=== PATIENT | female | born 1950 | race African-American/Black ===

== ENCOUNTER 2022-03-18 21:54 | Emergency (ER) | payer OTHER ==
[~2022-03-18] VITALS: Ht 160 cm; Wt 66.7 kg
[2022-03-18 22:14] VITALS: BP_SYST 133
[2022-03-18] MEDS ORDERED: IBUPROFEN 800 MG TABLET PO ONE (23:15)
[2022-03-18] MEDS ORDERED: ASPIRIN 325 MG TABLET PO ONE (23:15)
[2022-03-18] MEDS ORDERED: NITROGLYCERIN 0.4 MG TAB.SUBL SL ONE (23:15)
[2022-03-18] MEDS ORDERED: predniSONE 20 MG TABLET PO ONE (23:45)
[2022-03-18] MEDS ORDERED: IPRATROPIUM/ALBUTEROL SULFATE 3 ML AMPUL.NEB (DUONEB) INH ONE (23:45)
[2022-03-19 00:37] LABS: BASOPHILS % (AUTO) 0.4 % (0.0-2.0); EOSINOPHILS # (AUTO) 0.1 K/uL (0.0-0.4); EOSINOPHILS % (AUTO) 2.5 % (0.0-4.0); HEMATOCRIT 37.8 % (36-48); HEMOGLOBIN 12.3 g/dL (12.0-16.0); LYMPHOCYTES # (AUTO) 1.2 K/uL (1.0-5.5); LYMPHOCYTES % (AUTO) 34.5 % (20.5-51.5); MEAN CORPUSCULAR HEMOGLOBIN 28 pg (27-31); MEAN CORPUSCULAR HGB CONC 33 % (32-36); MEAN CORPUSCULAR VOLUME 85 fL (79.0-98.0); MONOCYTES # (AUTO) 0.2 K/uL (0.0-1.0); MONOCYTES % (AUTO) 7.1 % (1.7-9.3); NEUTROPHILS # (AUTO) 1.9 K/uL (1.8-7.7); PLATELET COUNT (AUTO) 171 K/uL (130-430); RED BLOOD CELL COUNT(AUTO) 4.47 MIL/uL (4.2-6.2); RED CELL DISTRIBUTION WIDTH 13.7 % (9.0-15.0); WHITE BLOOD COUNT (AUTO) 3.5 K/uL (4.8-10.8)
[2022-03-19 01:02] LABS: ANION GAP 8 (5-15); CALCIUM 9.1 mg/dL (8.4-11.0); CHLORIDE 101 mmol/L (98-107); CREATININE 1.04 mg/dL (0.55-1.30); GLUCOSE 91 mg/dL (70-99); POTASSIUM 3.9 mmol/L (3.5-5.1); SODIUM SERUM 138 mmol/L (136-145); UREA NITROGEN, BLOOD 15 mg/dL (8-21)
[2022-03-19 01:04] LABS: GFR AFRICAN AMERICAN 68 mL/min (>90)
[2022-03-19 01:12] LABS: ALANINE AMINOTRANSFERASE 20 U/L (12-78); ALBUMIN 3.5 g/dL (3.4-4.8); ASPARTATE AMINOTRANSFERASE 19 U/L (10-37); TOTAL BILIRUBIN 0.5 mg/dL (0.0-1.0)
[2022-03-19] MEDS ORDERED: IPRATROPIUM BROM 0.5 MG/2.5 ML VIAL.NEB (ATROVENT) INH ONE (01:37)
[2022-03-19] MEDS ORDERED: ALBUTEROL SULFATE 0.083% 2.5 MG/3 ML VIAL.NEB INH ONE (01:37)
[2022-03-19] MEDS ORDERED: ALBMDI INH (02:09)
[2022-03-19] MEDS ORDERED: PRED20TA PO (02:09)
[2022-03-19 02:49] VITALS: BP_SYST 126
[2022-03-19 02:54] LABS: NEUTROPHILS % (AUTO) 55.5 % (40.0-70.0)
== END 2022-03-19 02:48 | disposition home or self-care (01) ==
LOC: SED 21:54
DX: R07.89 Other chest pain (principal); R00.1 Bradycardia, unspecified; R06.2 Wheezing
CPT/HCPCS: 36415; 71045; 80053; 82962; 84484; 85025; 93005; 94640; 99285; J7613; J7512